=== PATIENT | male | born 1935 | race Caucasian/White ===

== ENCOUNTER 2017-04-13 06:58 | Observation (INO) | payer MEDICARE ==
[~2017-04-13] VITALS: Ht 180.3 cm; Wt 104.0 kg
[~2017-04-13 06:58] MED LIST: ALBUTEROL SUL0.083 % IN; ANORO ELLIPTA 61 AER IN; ASPIRIN81 MG PO; CLARITIN10 M1 PO; COQ10100 MG PO; DOXYCYCL HYC100 MG PO; FINASTERIDE5 MG PO; FISH OIL1000 MG PO; FLOMAX0.4 M1 PO; FLUTICASONE50 MCG; IBUPROFEN200 MG PO; IMITREX; MAXALT-MLT10 MG; MAXALT10 MG PO; METOPROL TAR25 MG PO; NEXIUM20 M1; PERCOCET 5/325M1 TAB PO; PREVACID30 M1 PO; PROAIR RES108 MCG/AC IN; SALINE NASAL0.65 %; SOD CHLORIDE1 G2 PO; STOOL SOFTE1 PO; SUDAFED30 MG PO; TRILEPTAL300 M1 PO; TRILEPTAL300 MG
--- NOTE | 2017-04-13 07:07 | NUR ---
PATIENT TO ROOM VIA EMS AND PHYSICIAN AT BEDSIDE
[2017-04-13] MEDS ORDERED: GABAPENTIN300 M2 PO (07:18)
[2017-04-13] MEDS ORDERED: LASIX20 MG PO (07:19)
[2017-04-13] MEDS ORDERED: XARELTO20 MG PO (07:19)
[2017-04-13] MEDS ORDERED: VALIUM5 MG PO (07:20)
[2017-04-13 07:21] LABS: HEMATOCRIT 37.2 % (39.0-50.0); HEMOGLOBIN 12.4 g/dl (14.0-18.0); MEAN CELL VOLUME 94.4 fL CALC (80.0-100.0); MEAN CORPUSCULAR HGB 31.5 pG CALC (26.0-32.0); MEAN CORPUSCULAR HGB CONC 33.3 g/L CALC (32.0-36.0); NEUT# 3.68 thou/uL (1.82-7.42); RED BLOOD COUNT 3.94 mill/uL (4.70-6.10); RED CELL DISTRI WIDTH 14.6 % (11.5-15.5)
[2017-04-13 07:40] LABS: ALBUMIN 3.7 g/dL (3.2-5.0); ALKALINE PHOSPHATASE 78 u/l (38-126); ANION GAP 13 (6-22 (CALC)); BILIRUBIN, TOTAL 0.5 mg/dL (0.0-1.4); BUN 34 mg/dL (8-23); BUN/CREATININE RATIO 44 (12-20 (CALC)); CALCIUM 8.6 mg/dL (8.4-10.2); CARBON DIOXIDE 24 mmol/l (22-30); CHLORIDE 108 mmol/l (95-108); CREATININE 0.8 mg/dL (0.7-1.3); ETHYL ALCOHOL 0 mg/dl (0-30); GFR > 60 ML/MIN (>=60 (CALC)); GFR FOR AFR.AMER. > 60 ML/MIN (>=60 (CALC)); GLUCOSE 119 mg/dL (82-115); POTASSIUM 3.9 mmol/l (3.5-5.1); SGOT/AST 35 u/l (19-48); SGPT/ALT 38 u/l (11-66); SODIUM 140 mmol/l (137-146); TOTAL PROTEIN 6.8 g/dL (6.3-8.2)
[2017-04-13 07:41] LABS: IMMATURE GRANULOCYTES 6.3 % (0.0-1.0)
[2017-04-13 07:52] LABS: MYOGLOBIN 47 ng/mL (0 - 121)
--- NOTE | 2017-04-13 08:24 | NUR ---
PT TO RADIOLOGY FOR 2ND ATTEMPT OF CT BRAIN AND CSPINE
--- NOTE | 2017-04-13 09:00 | NUR ---
PT RETURNS FROM CT IN STABLE CONDITION VIA STRETCHER. HEAD ABRASION CLEANSED AND DRESSING APPLIED. AT BEDSIDE.
[2017-04-13 09:51] LABS: URINE BILIRUBIN - DIPSTICK NEGATIVE (NEGATIVE); URINE BLOOD DIPSTICK NEGATIVE (NEGATIVE); URINE CLARITY CLEAR; URINE COLOR YELLOW; URINE GLUCOSE - DIPSTICK NEGATIVE (NEGATIVE); URINE KETONE NEGATIVE (NEGATIVE); URINE LEUK ESTERASE NEGATIVE (NEGATIVE); URINE NITRITE - DIPSTICK NEGATIVE (Negative); URINE PROTEIN - DIPSTICK NEGATIVE (NEG-TRACE); URINE UROBILINOGEN - DIPSTICK 0.2 E.U./dL (0.2)
[2017-04-13 09:57] LABS: BARBITURATES NEGATIVE (NEGATIVE); COCAINE NEGATIVE (NEGATIVE); METHADONE NEGATIVE (NEGATIVE); OXCYCODONE NEGATIVE (NEGATIVE); TETRAHYDROCANNABIONOL NEGATIVE (NEGATIVE); TRICYLIC ANTIDEPRESSANTS POSITIVE (NEGATIVE)
--- NOTE | 2017-04-13 09:58 | NUR ---
REPORT PROVIDED TO FLORESITA HARRIS
--- NOTE | 2017-04-13 10:15 | NUR ---
PT TO MEDSURG IN STABLE CONDITON VIA STRETCHER.
--- NOTE | 2017-04-13 11:30 | NUR ---
PT.ARRIVED TO FLOOR IN GOOD CONDITION VIA STRETCHER ACCOMPANIED BY FLORESITA HUTCHINS OF ED; PT.ORIENTED TO ROOM,CALL LIGHT, SAFETY MEASURES AND V/S,WEIGHT ASSESSED. WILL F/UP WITH FULL ASSESSMENT AND DISCUSS POC W/PT.; AT BS AND CALL LIGHT WIN REACH
[2017-04-13 11:33] VITALS: BP 105/62
[2017-04-13 15:09] VITALS: BP 110/63
[2017-04-13 19:08] VITALS: BP 109/65
--- NOTE | 2017-04-13 21:00 | NUR ---
PT IN BED A/O X3, RESPIRATIONS EVEN AND UNLABORED. DENIES HEADACHE. DRESSING IN PLACE TO HEAD, ADMITS TO FALLING AT HOME AND HITTING HIS HEAD, BUT STATES HE HAS NO RECOLECTION OF IT HAPPENING UNTIL EMS WAS BRINGING HIM TO HOSPITAL. AT BED SIDE. ENCOURAGED TO USE CALL LIGHT FOR ASSISTANCE.
--- NOTE | 2017-04-14 | NUR ---
CODE EXIT CLEARED PT TRANSFERRED BACK TO [facility] ROOM 268, ALL BELONGINS WITH HIM, AT BED SIDE.
[2017-04-14 03:16] VITALS: BP 115/63
[2017-04-14 07:22] VITALS: BP 129/78
--- NOTE | 2017-04-14 07:30 | NUR ---
PT.PROPPED UP IN BED W/TV ON AND AT BS. STATES HE WANTS A WALKER TO WALK THE [place] AND SEE HOW HE FEELS; WALKER PROVIDED, AND PT.IS WALKING [place] W/MARY NEWSOME AT SIDE.
--- NOTE | 2017-04-14 11:00 | NUR ---
pt has been relaxing in bed with no distress noted. iv site is free from redness or edema. family in the room. continue to observe and monitor.,
--- NOTE | 2017-04-14 14:30 | NUR ---
IV SITE DISCONTINEUD CATHETER INTACT., NO REDNESS OR EDEMA. CONTINUE TO OBSERVE AND MONITOR.
--- NOTE | 2017-04-14 15:05 | NUR ---
DISCHARGE INSTRUCTIOMS GIVEN WITH PERSONAL MEDICATIONS FAMILY IN THE ROOM. VERBALIZED UNDERSTANDING. BACK OF HIS HEAD IS CURRENTLY DRY NO OOZING OF BLOOD FROM THE WOUND.
--- NOTE | 2017-04-14 15:07 | NUR ---
Discharge instructions given. Patient verbalizes understanding of same. Discharged in stable condition via Wheelchair to Home with family. All belongings sent with pt.
== END 2017-04-14 14:55 | disposition home or self-care (01) ==
LOC: ED 06:58 → ED-I 09:40 → ED 09:59 → MS2 10:00
PROVIDERS: Emergency Medicine; ADMIT Internal Medicine; ATTEND Internal Medicine
DX: R55 Syncope and collapse (principal); J44.9 Chronic obstructive pulmonary disease, unspecified; S00.01XA Abrasion of scalp, initial encounter; G47.33 Obstructive sleep apnea (adult) (pediatric); G50.0 Trigeminal neuralgia; K21.9 Gastro-esophageal reflux disease without esophagitis; N40.0 Benign prostatic hyperplasia without lower urinary tract symptoms; E87.1 Hypo-osmolality and hyponatremia; W18.30XA Fall on same level, unspecified, initial encounter; Y92.002 Bathroom of unspecified non-institutional (private) residence as the place of occurrence of the external cause; Z90.49 Acquired absence of other specified parts of digestive tract; Z79.01 Long term (current) use of anticoagulants; Z87.891 Personal history of nicotine dependence; Z95.0 Presence of cardiac pacemaker; Z95.2 Presence of prosthetic heart valve; Z86.74 Personal history of sudden cardiac arrest

== ENCOUNTER 2018-07-22 17:12 | Emergency (ER) | payer MEDICARE, BC ==
[~2018-07-22] VITALS: Ht 180.3 cm; Wt 105.0 kg
[~2018-07-22 17:12] MED LIST changes: +GABAPENTIN300 M2 PO; +LASIX20 MG PO; +VALIUM5 MG PO; +XARELTO20 MG PO
[2018-07-22] MEDS ORDERED: VALIUM5 MG PO (17:32)
[2018-07-22] MEDS ORDERED: ULTRAM50 M1 PO (18:42)
[2018-07-22 19:11] VITALS: BP 129/59
== END 2018-07-22 19:23 | disposition home or self-care (01) ==
LOC: ED 17:12
PROC: 0HQ0XZZ Repair Scalp Skin, External Approach (ICD-10-PCS; principal; 2018-07-22)
DX: S01.01XA Laceration without foreign body of scalp, initial encounter (principal); S30.0XXA Contusion of lower back and pelvis, initial encounter; H91.90 Unspecified hearing loss, unspecified ear; G50.0 Trigeminal neuralgia; W01.198A Fall on same level from slipping, tripping and stumbling with subsequent striking against other object, initial encounter; Y93.89 Activity, other specified; Y92.009 Unspecified place in unspecified non-institutional (private) residence as the place of occurrence of the external cause; Z95.2 Presence of prosthetic heart valve; Z86.74 Personal history of sudden cardiac arrest

== ENCOUNTER 2018-08-22 16:56 | Observation (INO) | payer MEDICARE, OTHER ==
[~2018-08-22] VITALS: Ht 180.3 cm; Wt 102.4 kg
[~2018-08-22 16:56] MED LIST changes: +ULTRAM50 M1 PO
--- NOTE | 2018-08-22 16:56 | NUR ---
PT ARRIVED VIA EMS ALERT AND RESPONSIVE. NO ACITVE BLEEDING THROUGH SCALP BANDAGE. TRANFERED TO STRETCHER AND IMMEDIATELY TO CT SCAN
[2018-08-22 17:24] LABS: HEMOGLOBIN 11.9 g/dl (14.0-18.0); IMMATURE GRANULOCYTES 4.6 % (0.0-5.0); MEAN CELL VOLUME 96.4 fL CALC (80.0-100.0); MEAN CORPUSCULAR HGB CONC 32.2 g/L CALC (32.0-36.0); NEUT# 3.16 thou/uL (1.82-7.42); RED BLOOD COUNT 3.84 mill/uL (4.70-6.10); RED CELL DISTRI WIDTH 15.3 % (11.5-15.5)
--- NOTE | 2018-08-22 17:41 | NUR ---
PT JOKING AND TEASING ALL OF STAFF AND DOCTORS, STATES HE HAS BEEN SEEING A RETIONOLOGIST FOR THE LEFT EYE, BLURRINESS AND PUPIL NOT RESPONDING WELL RIGHT, SINCE FALLING LAST MONTH.
--- NOTE | 2018-08-22 17:42 | NUR ---
FAMILY AT BEDSIDE, SUTURING THE TWO LACERATION TO LEFT SIDE OF EYEBROW. 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
[2018-08-22] MEDS ORDERED: FAMOTIDINE20 M1 PO (17:44)
[2018-08-22] MEDS ORDERED: FLONASE SE27.5 MCG/S NAB (17:45)
[2018-08-22] MEDS ORDERED: SOD CHLORIDE1 G1 PO ×4 (17:48→18:18)
[2018-08-22] MEDS ORDERED: STIOLTO RESPIMA1 AER IN (17:49)
--- NOTE | 2018-08-22 17:55 | NUR ---
STATES HE WAS OUT IN [place] WORKING ON A BIKE WHEN HE FELL.
--- NOTE | 2018-08-22 17:56 | NUR ---
LEFT EYE HAS SOME NOTICEABLE BRUISING AT THIS TIME. PT REMAINS ALERT/ORIENTED AND TALKING AND LAUGHING WITH FAMILY AND STAFF.
--- NOTE | 2018-08-22 17:59 | NUR ---
FARZAD CANAS IS TRYING TO RECONCILE MEDS, PULLED OUT A TACKLE BOX WITH ALL THE PILLS HE IS ON IN SEPARATE COMPARTMENTS. TRYING TO FIND OUT WHEN HE TAKES HIS MEDICATIONS, SHE STATES SHE DOESNT HAVE ANY BOTTLES, WHEN THE RX COME IN MAIL SHE JUST DUMPS THEM IN FOR THE WEEK IN THE TACKLE BOX AND THROWS AWAY THE PLASTIC SHEETS.
[2018-08-22 18:06] LABS: ANION GAP 14 (6-22 (CALC)); BUN 47 mg/dL (8-23); BUN/CREATININE RATIO 48 (12-20 (CALC)); CARBON DIOXIDE 24 mmol/l (22-30); CHLORIDE 110 mmol/l (95-108); GFR > 60 ML/MIN (>=60 (CALC)); GFR FOR AFR.AMER. > 60 ML/MIN (>=60 (CALC)); POTASSIUM 4.2 mmol/l (3.5-5.1); SODIUM 144 mmol/l (137-146)
--- NOTE | 2018-08-22 18:40 | NUR ---
NOTICED PTS HEART RATE WAS DROPPING INTO THE 40'S AND THEN BOUNCING BACK UP INTO THE 70'S WITH MULTIPLE PVC'S. INTEROGATED PTS [employer] THAT IS ON PTS RIGHT UPPER CHEST. PT STATES WAS PLACED IN 2013.
--- NOTE | 2018-08-22 19:08 | NUR ---
FAX SENT BACK TO US FROM [facility] DR. LINDA LOOKING OVER IT. PT RESTING ON STRETCHER. ADVISED OF REASON FOR ADMISSION. LEFT TO GO HOME. PT REMAINS ALERT/ORIENTED, CALL LIGHT WITHIN REACH, SIDE RAILS UP.
[2018-08-22 20:00] VITALS: BP 142/66
--- NOTE | 2018-08-22 20:00 | NUR ---
PT ARRIVED TO FLOOR VIA STRETCHER ACCOMPANIED BY HEALTHCARE ACCOUNT MANAGER. PT ASSISTED TO RESTROOM AND TO THE BED. V/S ASSESSED AND PT ORIENTED TO ROOM,CALL SYSTEM, BED, LIGHTS AND TV. PT REPORTS SOME PAIN TO HEAD. SKIN TEAR TO TOP OF HEAD, BRUISING UPPER LEFT EYE AND BROW AREA W/SKIN TEARS X2 OVER EYE AND SUTURES IN PLACE. PT IS REQUESTING COFFEE/PROVIDED. ORDERS REVIEWED AND POC DISCUSSED W/PT AT THIS TIME. WILL FOLLOW-UP W/FULL ASSESSMENT.
--- NOTE | 2018-08-22 20:06 | NUR ---
PT REPORT GIVEN AND PT TAKEN TO MED SURG WITH TELE MONITER PER STRETCHER.
[2018-08-22 20:39] LABS: URINE BILIRUBIN - DIPSTICK NEGATIVE (NEGATIVE); URINE BLOOD DIPSTICK NEGATIVE (NEGATIVE); URINE COLOR YELLOW; URINE GLUCOSE - DIPSTICK NEGATIVE (NEGATIVE); URINE KETONE NEGATIVE (NEGATIVE); URINE LEUK ESTERASE NEGATIVE (Negative); URINE NITRITE - DIPSTICK NEGATIVE (Negative); URINE PROTEIN - DIPSTICK NEGATIVE (NEG-TRACE); URINE UROBILINOGEN - DIPSTICK 0.2 E.U./dL (0.2)
[2018-08-22 20:43] LABS: URINE CLARITY CLEAR
--- NOTE | 2018-08-22 21:37 | NUR ---
PT ASSESSED, LUNG SOUNDS ARE CLEAR, ABD DIST/SOFT W/ACTIVE BOWEL SOUNDS, PT REPORTS PAIN IN HEAD, SUTURES AND BRUISING OVER LEFT EYE AND SKIN TEAR TO TOP OF HEAD, OTHERWISE SKIN APPEARS INTACT. NO NOTED EDEMA OTHER THAN OVER THE LEFT EYE, PT IS LOCX4 AT THIS TIME, BUT DOES NOT REMEMBER FALLING OR WHY HE FELL. STRONG/EQUAL CRISIS NURSE, SPEECH IS CLEAR AND APPROPRIATE, PUPILS ARE REACTIVE BUT UNEQUAL, PULSES ARE STRONG BILAT RADIAL AND PEDAL, RESPIRATIONS ARE NON-LABORED, DENIES COUGH/N/V, REPORTS FREQUENCY W/URINATION/DENIES BURNING OR DIFFICULTY, REPORTS BM THIS DAY NORMAL.
[2018-08-22 23:05] VITALS: BP 114/53
[2018-08-22 23:10] VITALS: BP 122/60
[2018-08-22 23:15] VITALS: BP 119/66
[2018-08-23] VITALS (7 sets, daily range): BP systolic 97–115; BP diastolic 40–64
--- NOTE | 2018-08-23 05:20 | NUR ---
ATTEMPTED TO TAKE ORTHOSTATIC BP'S SUPPINE 104/62 HR66 02SAT 91%, PT REFUSED REMAINDER OF BP'S DUE TO DISCOMFORT. STANDING SCALE WEIGHT OBTAINED AT THIS TIME.
--- NOTE | 2018-08-23 06:25 | NUR ---
PT IN RECLINER FOR COMFORT, PHYSICIAN CONTACTED FOR NEW ORDERS, WILL MEDICATE ORDERS ARE AVAILABLE. PT PROVIDED ICE PACK
--- NOTE | 2018-08-23 08:10 | NUR ---
PT IN SEMI FOWLERS IN BED. PT IS UPSET. STATED THAT HE IS WAITING FOR HIS TO BRING HIS MEDICATION TRILEPTAL FOR HIS PAIN IN LEFT EYE. PT REFUSED HIS AM MEDICATIONS AT THIS TIME. PT ONLY TOOK TYLENOL FOR PAIN IN LEFT EYE SEE EMAR. SAFETY PRECAUTIONS REINFORCED AND CALL LIGHT IN REACH.
--- NOTE | 2018-08-23 08:35 | NUR ---
IN ROOM. ASKED IF SHE HAD THE TRILEPTAL. SHE STATED YES BUT PT AND STATED THEY WILL NOT GIVE IT TO ME TO SEND IT TO PHARMACY SO THEY CAN LABEL IT. PT REFUSED AGAIN HIS AM MEDICATIONS. HAS HIS MEDICATIONS IN A CASE AND STATED THAT SHE WILL GAVE THEM TO HIM. TOLD THEN PER OUR POLICY THEY ARE NOT ALLOW TO KEEP HIS MEDICATIONS IN THE ROOM. THEY STATED HE WILL TAKE HIS OWN MEDICATIONS. CALL LIGHT IN REACH.
--- NOTE | 2018-08-23 09:22 | NUR ---
ASESSMENT DONE . TELE IN PLACE. #22 RAC THAT APPEARS HEALTHY. PT IS A&O X3. PT STATED THAT HE ONLY TOOK HIS TRILEPTAL AND WANTS HIS AM MEDICATION. NOTIFIED DAVIN SOUSA RE: PT TAKING HIS OWN MEDICATION. DAVIN, STATED TO HOLD HIS AM MEDICATION ON TILL COMES BACK. DAVIN EXPLAIN THAT TO PT ALSO. CALL LIGHT IN REACH.
--- NOTE | 2018-08-23 10:28 | NUR ---
CAME BACK. ASKED WHAT MEDICATIONS DID PT TAKE . SHE STATED TRILEPTAL ADN GABAPENTIN. TOLD THEM I HAD TO NOTIFIED PAVING AND SURFACING LABOURER . TOLD THAT IF SHE CAN BRING THE TRILEPTAL AND LET PHARMACY LABEL IT THAT WE CAN KEEP IT IN THE ROOM BUT HE WOULD ONLY TAKE THAT MEDICATION ON TILL WE SCAN IT . PT AND STATED YES. TOLD PAVING AND SURFACING LABOURER AND SHE STATED THAT WAS FINE.
--- NOTE | 2018-08-23 10:55 | NUR ---
DR. TRAN AND DAVIN SOUSA [facility]IDE [facility].
--- NOTE | 2018-08-23 11:24 | NUR ---
PT HOLDING A COOL WASH CLOTH TO LEFT EYE. MEDICATED PT WITH MORPHINE FOR PAIN SEE EMAR. PT DENIES ANY OTHER NEEDS AT THIS TIME. CALL LIGHT IN REACH.
--- NOTE | 2018-08-23 12:30 | NUR ---
NOTIFIED DAVIN SOUSA RE: ORTHO BP LAYING P-77 BP 103/40 AND SITTING P-61 103/48. ALSO THAT PT REFUSED TO STAND FOR BP. NO NEW ORDERS RECEIVED AT THIS TIME.
--- NOTE | 2018-08-23 15:53 | NUR ---
PT IS SLEEPING IN BED WITH NO S/S OF DISTRESS NOTED. CALL LIGHT IN REACH.
--- NOTE | 2018-08-23 19:15 | NUR ---
PT IS SLEEPING IN HIGH FOWLERS POSITION W/LIGHTS DOWN LOW AND TV ON. NO S/O DISTRESS AT THIS TIME. CALL LIGHT AT SIDE
--- NOTE | 2018-08-23 22:30 | NUR ---
PT MEDICATED ORDERS PROVIDE. PT LUNG SOUNDS ARE CLEAR, HR IRREGULAR, ABD SOFT NON-TENDER W/ACTIVE BOWEL SOUNDS, SKIN INTACT OTHER THAN SKIN TEAR TO TOP OF HEAD AND SUTURED TEARS OVER LEFT EYE ON ADMISSION. PT LOCX4, POC AND MEDICATIION SCHEDULE DISCUSSED AT THIS TIME. PT PROVIDED COFFEE/REQUEST AND ASSISTED IN INTERNET ACCESS. REPORTS PAIN IS 1-2/10 ON PAIN SCALE. PT DENIES ANY OTHER NEEDS AT THIS TIME
[2018-08-24] VITALS (10 sets, daily range): BP systolic 92–129; BP diastolic 48–69
--- NOTE | 2018-08-24 00:13 | NUR ---
PT REFUSED ORTHOSTATIC BP'S AT THIS TIME.
--- NOTE | 2018-08-24 03:00 | NUR ---
PT IS SLEEPING AT THIS TIME, NO S/O DISTRESS. WILL CONTINUE TO MONITOR.
--- NOTE | 2018-08-24 07:10 | NUR ---
REPORT RECEIVED FROM FLORESITA HARRIS; PT APPEARS TO BE SLEEPING IN BED, RESP EVEN AND UNLABRORED, CALL TUBBS IN REACH.
--- NOTE | 2018-08-24 08:31 | NUR ---
PT SITTING UP IN BED EATING BREAKFAST; A/OX3; 02@ 2LNC; SCAB AREA ON HEAD NOTED; LEFT EYE BRUISED AND SWOLLEN; SUTURES ABOVE LEFT EYE INTACT, NO DRAINAGE NOTED; TELE IN PLACE PACED 69 ON MONITOR; PULSES STRONG; ABD SOFT AND DISTENDED; IV FLUSHED FREELEY; PAIN SCALE 4/10 REFUSED PAIN MEDS; SAFTEY PRECAUTION REINFORCE; CALL TUBBS AND URINAL IN REACH. AM MED ADMINISTERED;
--- NOTE | 2018-08-24 11:21 | NUR ---
PT SITTING UP IN RECLINER VISITING WITH FAMILY MEMBERS; NO S/S OF DISTRESS NOTED; RESP EVEN AND UNLABORED; [address]; CALL TUBBS IN REACH.
--- NOTE | 2018-08-24 12:01 | NUR ---
ORTHO VITALS OBTAINED LAY HR68, BP 106/48; SIT HR 73, BP 118/48, STAND HR 75, BP 105/52; SAFETY PRECAUTION REINFORCED; PT NOW EATING LUNCH. CALL TUBBS IN REACH.
--- NOTE | 2018-08-24 12:15 | NUR ---
DR GABRIEL AT BEDSIDE TO DISSCUSS POC
--- NOTE | 2018-08-24 15:11 | NUR ---
D/C INSTURCTIONS GIVEN TO PT ALONG WITH HIS HOME MED (TRILEPTAL); IV REMOVED WITH CATH TIP INTACT; PT TOLERATED WELL; ASSIST PT WITH DRESSING; INSTRUCT PT TO CALL WHEN HIS RIDE GETS HERE; VERBALIZE UNDERSTANDING.
--- NOTE | 2018-08-24 15:22 | NUR ---
Discharge instructions given. Patient verbalizes understanding of same. Discharged in stable condition via Wheelchair to Home with family. All belongings sent with pt.
== END 2018-08-24 15:25 | disposition home or self-care (01) ==
LOC: ED 16:56 → ED-I 18:35 → ED 18:46 → MS2 18:47
PROVIDERS: Family Medicine; Internal Medicine; ADMIT Internal Medicine; ATTEND Internal Medicine
PROC: 0HQ1XZZ Repair Face Skin, External Approach (ICD-10-PCS; principal; 2018-08-22)
PROC: 0HQ0XZZ Repair Scalp Skin, External Approach (ICD-10-PCS; 2018-08-22)
DX: R55 Syncope and collapse (principal); S06.9X1A Unspecified intracranial injury with loss of consciousness of 30 minutes or less, initial encounter; S01.01XA Laceration without foreign body of scalp, initial encounter; S01.112A Laceration without foreign body of left eyelid and periocular area, initial encounter; J44.9 Chronic obstructive pulmonary disease, unspecified; G47.33 Obstructive sleep apnea (adult) (pediatric); N40.0 Benign prostatic hyperplasia without lower urinary tract symptoms; K21.9 Gastro-esophageal reflux disease without esophagitis; G50.0 Trigeminal neuralgia; H91.90 Unspecified hearing loss, unspecified ear; I48.0 Paroxysmal atrial fibrillation; I27.20 Pulmonary hypertension, unspecified; W18.30XA Fall on same level, unspecified, initial encounter; Y92.009 Unspecified place in unspecified non-institutional (private) residence as the place of occurrence of the external cause; Z95.0 Presence of cardiac pacemaker; Z87.891 Personal history of nicotine dependence; Z79.01 Long term (current) use of anticoagulants; Z86.74 Personal history of sudden cardiac arrest; Z95.3 Presence of xenogenic heart valve

== ENCOUNTER 2018-10-09 12:25 | Emergency (ER) | payer MEDICARE, OTHER ==
[~2018-10-09] VITALS: Ht 180.3 cm; Wt 101.8 kg
[~2018-10-09 12:25] MED LIST changes: +FAMOTIDINE20 M1 PO; +FLONASE SE27.5 MCG/S NAB; +SOD CHLORIDE1 G1 PO; +STIOLTO RESPIMA1 AER IN
[2018-10-09] MEDS ORDERED: MULTI VIT PO (13:17)
[2018-10-09] MEDS ORDERED: LUTEIN40 MG PO (13:17)
[2018-10-09] MEDS ORDERED: B121000 MCG PO (13:18)
[2018-10-09] MEDS ORDERED: MAGNESIUM OXID400 M3 PO (13:18)
[2018-10-09] MEDS ORDERED: PREDNISOLO15 MG/5 M1 OS (13:20)
[2018-10-09] MEDS ORDERED: GENTAMICIN0.3 % OS (13:21)
[2018-10-09 13:45] LABS: HEMATOCRIT 39.2 % (39.0-50.0); HEMOGLOBIN 12.7 g/dl (14.0-18.0); IMMATURE GRANULOCYTES 2.3 % (0.0-5.0); MEAN CELL VOLUME 94.9 fL CALC (80.0-100.0); MEAN CORPUSCULAR HGB 30.8 pG CALC (26.0-32.0); MEAN CORPUSCULAR HGB CONC 32.4 g/L CALC (32.0-36.0); NEUT# 3.75 thou/uL (1.82-7.42); RED BLOOD COUNT 4.13 mill/uL (4.70-6.10); RED CELL DISTRI WIDTH 14.7 % (11.5-15.5)
[2018-10-09 13:53] LABS: ALBUMIN 4.4 g/dL (3.2-5.0); ALKALINE PHOSPHATASE 102 u/l (38-126); ANION GAP 16 (6-22 (CALC)); BILIRUBIN, TOTAL 0.6 mg/dL (0.0-1.4); BUN 18 mg/dL (8-23); BUN/CREATININE RATIO 28 (12-20 (CALC)); CARBON DIOXIDE 25 mmol/l (22-30); CHLORIDE 100 mmol/l (95-108); CREATININE 0.7 mg/dL (0.7-1.3); GFR > 60 ML/MIN (>=60 (CALC)); GFR FOR AFR.AMER. > 60 ML/MIN (>=60 (CALC)); POTASSIUM 4.8 mmol/l (3.5-5.1); SODIUM 136 mmol/l (137-146); TOTAL PROTEIN 7.8 g/dL (6.3-8.2)
[2018-10-09 14:02] LABS: SGOT/AST 70 u/l (19-48)
[2018-10-09 14:05] LABS: MYOGLOBIN 30 ng/mL (0 - 121)
[2018-10-09 17:22] VITALS: BP 149/70
== END 2018-10-09 17:22 | disposition short-term general hospital (02) ==
LOC: ED 12:25
PROVIDERS: Emergency Medicine
DX: S06.5X9A Traumatic subdural hemorrhage with loss of consciousness of unspecified duration, initial encounter (principal); J44.9 Chronic obstructive pulmonary disease, unspecified; I27.20 Pulmonary hypertension, unspecified; I48.0 Paroxysmal atrial fibrillation; W19.XXXA Unspecified fall, initial encounter; Z95.0 Presence of cardiac pacemaker

== ENCOUNTER 2020-04-07 22:26 | Emergency (ER) | payer MEDICARE, OTHER ==
[~2020-04-07] VITALS: Ht 180.3 cm; Wt 107.0 kg
[~2020-04-07 22:26] MED LIST changes: +B121000 MCG PO; +GENTAMICIN0.3 % OS; +LUTEIN40 MG PO; +MAGNESIUM OXID400 M3 PO; +MULTI VIT PO; +PREDNISOLO15 MG/5 M1 OS
[2020-04-08 00:58] VITALS: BP 141/75
== END 2020-04-08 00:58 | disposition home or self-care (01) ==
LOC: ED 22:26
PROC: 0HQ0XZZ Repair Scalp Skin, External Approach (ICD-10-PCS; principal; 2020-04-07)
DX: S01.01XA Laceration without foreign body of scalp, initial encounter (principal); I48.0 Paroxysmal atrial fibrillation; G50.0 Trigeminal neuralgia; H91.90 Unspecified hearing loss, unspecified ear; J44.9 Chronic obstructive pulmonary disease, unspecified; I27.20 Pulmonary hypertension, unspecified; H54.62 Unqualified visual loss, left eye, normal vision right eye; W01.198A Fall on same level from slipping, tripping and stumbling with subsequent striking against other object, initial encounter; Z91.81 History of falling; Y92.000 Kitchen of unspecified non-institutional (private) residence as the place of occurrence of the external cause; Z99.81 Dependence on supplemental oxygen; Z86.79 Personal history of other diseases of the circulatory system; Z86.74 Personal history of sudden cardiac arrest; Z95.2 Presence of prosthetic heart valve; Z95.0 Presence of cardiac pacemaker

== ENCOUNTER 2020-05-23 00:58 | Emergency (ER) | payer MEDICARE, OTHER ==
[~2020-05-23] VITALS: Ht 180.3 cm; Wt 106.8 kg
[2020-05-23 02:22] LABS: HEMOGLOBIN 11.6 g/dl (14.0-18.0); MEAN CELL VOLUME 101.1 fL CALC (80.0-100.0); MEAN CORPUSCULAR HGB 30.9 pG CALC (26.0-32.0); MEAN CORPUSCULAR HGB CONC 30.5 g/dL CAL (32.0-36.0); NEUT# 4.26 thou/uL (1.82-7.42); RED BLOOD COUNT 3.76 mill/uL (4.70-6.10); RED CELL DISTRI WIDTH 16.1 % (11.5-15.5)
[2020-05-23 02:25] LABS: ALBUMIN 3.8 g/dL (3.2-5.0); ALKALINE PHOSPHATASE 105 u/l (38-126); ANION GAP 8 (6-22 (CALC)); BILIRUBIN, TOTAL 0.5 mg/dL (0.0-1.4); BUN 29 mg/dL (8-23); BUN/CREATININE RATIO 28 (12-20 (CALC)); CARBON DIOXIDE 30 mmol/l (22-30); CHLORIDE 107 mmol/l (95-108); CPK 84 u/l (52-200); GFR > 60 ML/MIN (>=60 (CALC)); GFR FOR AFR.AMER. > 60 ML/MIN (>=60 (CALC)); LIPASE 133 u/l (23-300); MAGNESIUM 2.1 mg/dL (1.6-2.3); POTASSIUM 4.1 mmol/l (3.5-5.1); SGOT/AST 36 u/l (19-48); SODIUM 140 mmol/l (137-146); TOTAL PROTEIN 6.9 g/dL (6.3-8.2)
[2020-05-23 02:30] LABS: ACT PARTIAL THROMBO TIME 24.7 SECONDS (20.0-32.5); PROTHROMBIN TIME 9.9 SECONDS (9.0-12.5)
[2020-05-23 03:55] VITALS: BP 139/64
== END 2020-05-23 03:55 | disposition home or self-care (01) ==
LOC: ED 00:58
DX: S40.012A Contusion of left shoulder, initial encounter (principal); R42 Dizziness and giddiness; J44.9 Chronic obstructive pulmonary disease, unspecified; I27.20 Pulmonary hypertension, unspecified; I48.0 Paroxysmal atrial fibrillation; W18.30XA Fall on same level, unspecified, initial encounter; Y92.009 Unspecified place in unspecified non-institutional (private) residence as the place of occurrence of the external cause; Z99.81 Dependence on supplemental oxygen; Z95.2 Presence of prosthetic heart valve; Z91.81 History of falling; Z95.0 Presence of cardiac pacemaker; Z86.74 Personal history of sudden cardiac arrest

== ENCOUNTER 2020-05-29 13:32 | Inpatient (IN) | payer MEDICARE, OTHER ==
[~2020-05-29] VITALS: Ht 180.3 cm; Wt 113.9 kg
[2020-05-29] VITALS (9 sets, daily range): BP systolic 110–140; BP diastolic 51–80
--- NOTE | 2020-05-29 13:32 | NUR ---
PT TO ROOM 10 VIA EMS FOR CHF EXACERBATION. 3+ EDEMA TO BLE. LUNGS ARE CLEAR.
--- NOTE | 2020-05-29 14:00 | NUR ---
PT VOIDED 350CC OF CLEAR YELLOW URINE
[2020-05-29 14:17] LABS: IMMATURE GRANULOCYTES 5.6 % (0.0-5.0); MEAN CELL VOLUME 99.4 fL CALC (80.0-100.0); MEAN CORPUSCULAR HGB 30.4 pG CALC (26.0-32.0); MEAN CORPUSCULAR HGB CONC 30.6 g/dL CAL (32.0-36.0); NEUT# 4.08 thou/uL (1.82-7.42); RED BLOOD COUNT 3.62 mill/uL (4.70-6.10); RED CELL DISTRI WIDTH 15.7 % (11.5-15.5)
--- NOTE | 2020-05-29 14:30 | NUR ---
MEDICATED PT PER EMAR AND ORDERS. OBTAINED SWABS PER ORDERS.
[2020-05-29 14:32] LABS: ALBUMIN 4.1 g/dL (3.2-5.0); ALKALINE PHOSPHATASE 103 u/l (38-126); ANION GAP 11 (6-22 (CALC)); BILIRUBIN, TOTAL 0.6 mg/dL (0.0-1.4); BUN 31 mg/dL (8-23); BUN/CREATININE RATIO 30 (12-20 (CALC)); CARBON DIOXIDE 33 mmol/l (22-30); CHLORIDE 103 mmol/l (95-108); GFR > 60 ML/MIN (>=60 (CALC)); GFR FOR AFR.AMER. > 60 ML/MIN (>=60 (CALC)); MAGNESIUM 2.1 mg/dL (1.6-2.3); POTASSIUM 4.2 mmol/l (3.5-5.1); SGOT/AST 46 u/l (19-48); SODIUM 142 mmol/l (137-146); TOTAL PROTEIN 7.5 g/dL (6.3-8.2)
--- NOTE | 2020-05-29 14:41 | NUR ---
CLOSED WOUND WITH 2 SERA
--- NOTE | 2020-05-29 15:00 | NUR ---
PT VOIDED 450 CC OF CLEAR YELLOW URINE
[2020-05-29 15:27] LABS: URINE BILIRUBIN - DIPSTICK NEGATIVE (NEGATIVE); URINE BLOOD DIPSTICK NEGATIVE (NEGATIVE); URINE COLOR YELLOW; URINE GLUCOSE - DIPSTICK NEGATIVE (NEGATIVE); URINE KETONE NEGATIVE (NEGATIVE); URINE LEUK ESTERASE NEGATIVE (NEGATIVE); URINE NITRITE - DIPSTICK NEGATIVE (Negative); URINE PH 6.5 (4.5-8.0); URINE PROTEIN - DIPSTICK NEGATIVE (NEG-TRACE); URINE SPECIFIC GRAVITY 1.015; URINE UROBILINOGEN - DIPSTICK 0.2 E.U./dL (0.2)
--- NOTE | 2020-05-29 15:45 | NUR ---
PT RESTING ON STRETCHER. VSS ON MONITOR. NO DISTRESS NOTED. CALL LIGHT IN REACH. WILL CONTINUE TO MONITOR.
[2020-05-29] MEDS ORDERED: MIDODRINE5 MG PO (16:03)
[2020-05-29] MEDS ORDERED: TRELEGY ELLIPTA1 AER IN (16:04)
[2020-05-29] MEDS ORDERED: DILT-XR120 MG PO (16:06)
[2020-05-29] MEDS ORDERED: CYMBALTA60 MG PO (16:07)
[2020-05-29] MEDS ORDERED: FUROSEMIDE20 MG PO (16:07)
[2020-05-29] MEDS ORDERED: TRILEPTAL300 MG PO ×2 (16:08→16:11)
[2020-05-29] MEDS ORDERED: DORZOLAMIDE HCL2 % OS (16:10)
--- NOTE | 2020-05-29 16:26 | NUR ---
PT VOIDED 550CC OF CLEAR YELLOW URINE.
--- NOTE | 2020-05-29 16:26 | NUR ---
REPORT CALLED TO ANA ON MED SURG.
--- NOTE | 2020-05-29 16:37 | NUR ---
masood pratt at bedside with patient
--- NOTE | 2020-05-29 17:00 | NUR ---
pt to room 281 via stretcher. pt tolerated transfer well.
--- NOTE | 2020-05-29 17:03 | NUR ---
RECIEVED REPORT FROM Jennifer YING RN. PT ARRIVED TO [facility] ROOM 281 VIA STRETCHER IN STABLE CONDITION ACCOMPAINED BY ER STAFF. PT IS A/O X3. INTRODUCED SELF TO PT AND DISCUSSED POC. VITALS OBTAINED BP 134/64, HR 95, O2 93% ON 4L NC. RESPIRATIONS ARE SHALLOW AND LABORED. LUNG SOUNDS ARE DIMINISHED. HEART RHYTHM APPEARS NORMAL WITH TELE PLACE. BOWEL SOUNDS ARE HYPOACTIVE, LAST REPORETD BM 05/29/2020. PT REPORTS TAKE MIRLAX DAILY TO ASSIST WITH BM . RADIAL AND PEDAL PULSES ARE STRONG WITH NORMAL CAPILLARY REFILL. #20G IN LAC EMS FLUSHED, SITE APPEARS HEALTHY AND PATENT. ABRASION TO RIGHT LEG, BAND AID APPLIED. SKIN IS WARM AND DRY. PT DENIES ANY PAIN OR DISCOMFORTS AT THIS TIME.PT REPORTS HAVING MULTIPLE FALLS AT HOME.WRITTER NOTIFIED OF ALLERGIES, ALLERGY BAND AND FALL RISK BAD APPLIED. ALL SAFETY AND ISOLATION PRECAUTIONS ARE IN PLACE PRECAUTIONS ARE IN PLACE WITH CALL LIGHT IN REACH. WILL CONTINUE TO MONITOR
--- NOTE | 2020-05-29 17:36 | NUR ---
RAPID RESPONSE CALLED, REPORTS OF PT HAVING VTACH. PT ON SIDE OF BED FINISHING USING URINAL. WRITTER AT BEDSIDE ASKING PT OF PAST MEDICAL HISTORY.PT REMAINS ASYMPTOMATIC. ORDERS TO TRANSFER PT TO ICU.
--- NOTE | 2020-05-29 17:50 | NUR ---
PT ARRIVED TO ICU ROOM 1 VIA BED WITH MEDSUR STAFF; ALERT AND ORIENTED. DENIES PAIN. RESPIRATIONS SLIGHTLY LABORED AND EVEN; OXYGEN 4L VIA NC WHICH HE WEARS AT HOME; PT REPORTS FEELING SOB, BUT SAYS HE ALWAYS FEELS SOB; SPO2 85-88%; OXYGEN TITRATED UP TO 5L. CONNECTED TO ATTACHMENTS; FREQUENT RUNS OF VTACH AND TRIGEMINY. 4+ BLE EDEMA. ORIENTED TO ROOM AND CALL LIGHT SYSTEM. PLACED ON [place]NE/CONTACT PRECAUTIONS PENDING COVID SWAB. POC REVIEWED. PT ENCOURAGED TO VERBALIZE CONCERNS. STATES UNDERSTANDING. SAFETY MEASURES IN PLACE. CALL LIGHT WITHIN REACH.
--- NOTE | 2020-05-29 17:50 | NUR ---
PT TRANSFER TO ICU BED 1. REPORT GIVEN TO Jose KU RN.
--- NOTE | 2020-05-29 18:34 | NUR ---
PT USED CALL LIGHT TO ASK FOR URINAL; UPON ENTERING ROOM PT IS LAYING HORIZONTAL IN BED WITH FOOD FROM [employer] COVERYING GOWN. PT IMPATIENT AND DEMANDING. ASSISTED TO SITTING POSITION ON EDGE OF BED AND PT REPORTS SHY BLADDRE AND UNABLE TO VOID WITH PEOPLE IN THE ROOM. SUGGESTED USING URINAL IN SEMI [place] POSITION FOR COMFORT AND SAFETY; REPOSITIONED INTO SEMI FOWLERS AND PULLED UP IN BED X 2 PERSON ASSIST. REPORTS HIS VISION LOSS IN THE LEFT EYE.
--- NOTE | 2020-05-29 18:38 | NUR ---
CURRENTLY IN TRIGEMINY WITH HR OF 92; PACER SPIKES NOTED WELL.
--- NOTE | 2020-05-29 19:15 | NUR ---
WHILE RECEIVING REPORT, PT CRAWLING OUT OF BED. ALERT. NOT LISTENING TO REDIRECTION. GIVEN 3 STAFF. TO PULL HIM UP IN BED TO REPOSITION HIME, HE BECAME COMFORTABLE AND COOPERATIVE. REMINDED TO CALL FOR ASSISTANCE AND NOT TRY TO GET OUT OF BED.
--- NOTE | 2020-05-29 19:30 | NUR ---
CARDIAC RHYTHM IS TRIGEMENY. DAYSHIFT STAFF REPORT THAT HAS BEEN HIS RHYTHN MOST OF THE SHIFT. PT DENIES CHEST PAIN OR DISCOMFORT
--- NOTE | 2020-05-29 19:50 | NUR ---
ASSISTED TO BSC- STATED HE NEEDED TO HAVE A BM AND WAS PARTLY OUT OF BED. STANDBY ASSIST TO BSC WHERE PT VOIDED 350 NL STRAW COLORED URINE
--- NOTE | 2020-05-29 21:28 | NUR ---
ORIENTED. TALKATIVE BUT NAKNEK. RETURNED TO BED WITH STANDBY ASSIST. ONLY COMPLAINT IS HUNGER
--- NOTE | 2020-05-29 23:07 | NUR ---
BEDRESTING. EYES CLOSED
[2020-05-30] VITALS (16 sets, daily range): BP systolic 97–139; BP diastolic 45–86
--- NOTE | 2020-05-30 00:28 | NUR ---
URINATING REGULARLY SINCE LASIX TAKEN. TOLERATING WELL
--- NOTE | 2020-05-30 02:00 | NUR ---
BEDRESTING. RESP EVEN AND NONLABORED. NO DSITRESS NOTED
--- NOTE | 2020-05-30 04:00 | NUR ---
RESTLESS. TOOK OFF GOWN. SITTING ON EDGE OF BED. C/O UNABLE TO GET COMFORTABLE AND C/O GENERALIZED PAIN. TYLENOL AND A SLEEPING PILL GIVEN HE HAS NOT RESTED MUCH TONIGHT
--- NOTE | 2020-05-30 05:00 | NUR ---
CALLING OUT "HELP ME... HELP ME" C/O BACK ACHING. 2 PERSON STANDBY ASSIST TO RECLINER. PT STATES HE LIVES IN A RECLINER AND THAT WILL HELP HIS BACK MORE THAN ANYTHING. FEET ELEVATED. SITTING IN RECLINER. RESP EVEN AND NONLABORED
--- NOTE | 2020-05-30 05:30 | NUR ---
LAB HERE FOR BLOOD DRAW
[2020-05-30 05:57] LABS: HEMATOCRIT 35.9 % (39.0-50.0); HEMOGLOBIN 11.2 g/dl (14.0-18.0); MEAN CELL VOLUME 98.9 fL CALC (80.0-100.0); MEAN CORPUSCULAR HGB 30.9 pG CALC (26.0-32.0); MEAN CORPUSCULAR HGB CONC 31.2 g/dL CAL (32.0-36.0); NEUT# 4.69 thou/uL (1.82-7.42); RED BLOOD COUNT 3.63 mill/uL (4.70-6.10); RED CELL DISTRI WIDTH 15.5 % (11.5-15.5)
[2020-05-30 06:19] LABS: ALBUMIN 3.9 g/dL (3.2-5.0); BILIRUBIN, TOTAL 0.5 mg/dL (0.0-1.4); CHOLESTEROL HDL RATIO 3.8 (<4.4 (CALC)); CREATININE 1.4 mg/dL (0.7-1.3); MAGNESIUM 2.1 mg/dL (1.6-2.3); POTASSIUM 4.2 mmol/l (3.5-5.1)
--- NOTE | 2020-05-30 06:22 | NUR ---
SITTING IN RECLINER DOZING. READILY AWAKENS. SMILING AND TALKATIVE
[2020-05-30 06:25] LABS: IMMATURE GRANULOCYTES 7.3 % (0.0-5.0)
--- NOTE | 2020-05-30 06:45 | NUR ---
RECIEVED REPORT FROM FLORESITA STAUFFER. ASSUMED PT CARE.
--- NOTE | 2020-05-30 07:30 | NUR ---
PT SITTING IN RECLINER, PACED,TRIGEMENY,PVC'S ON TELEMETRY, HR 78. PT DENIES CP, OR DISTRESS AT THIS TIME. PT REMAINS SOB WITH EXERTION, LS CLEAR/DIMINISHED, SA02@98% ON 4LPM/NC. LAC TO LSCALP CDI. ABDOMEN DISTENDED, NON-TENDER, BSX4 ACTIVE, LBM 10-26-20. BLE WITH +3 PITTING EDEMA FEET TO KNEE. PT STATED "OH THATS GOOD IT GETS FOR ME". CALL LIGHT IN REACH. WILL MONITOR.
--- NOTE | 2020-05-30 07:49 | NUR ---
Patient is screened for PT intervention. He is still being worked both for cardiac and pulmonary problems and it is probably too early for intervention at this time. He would benefit when he is a little more stable
--- NOTE | 2020-05-30 08:30 | NUR ---
CONSULTATION CALLED TO DR. SIMPSON, SPOKE WITH Leoncio IN JOHANN OFFICE. ECHO SCHEDULED FOR TODAY. PT UPDATED.
--- NOTE | 2020-05-30 09:04 | NUR ---
ASSISTED PT WITH PERSONAL CELL PHONE, TALKING WITH . CALL LIGHT IN REACH. WILL MONITOR.
--- NOTE | 2020-05-30 10:00 | NUR ---
PT FOUND WITH B/P CUFF AND TELEMETRY LEADS IN HAND. PT EDUCATED ON MONITORING EQUIPMENT. MONITORING EQUIPMENT REAPPLIED. PT REMAINS SITTING UP IN RECLINER. CALL LIGHT IN REACH, URINAL AT BEDSIDE. WILL MONITOR.
--- NOTE | 2020-05-30 10:55 | NUR ---
LIZA LÓPEZ AT BEDSIDE FOR ASSESSMENT AND TO DISCUSS PLAN OF CARE. NO NEW ORDERS AT THIS TIME.
--- NOTE | 2020-05-30 11:30 | NUR ---
LUNCH TRAY SET UP
--- NOTE | 2020-05-30 12:17 | NUR ---
PT REMAINS IN RECLINER, BLE UP. NO DISTRESS NOTED . CALL LIGHT IN REACH.
--- NOTE | 2020-05-30 12:30 | NUR ---
DELIVERED PT H/A. GIVEN TO PT AND ASSISTED WITH APPLICATION.
--- NOTE | 2020-05-30 13:57 | NUR ---
ASSISTED PT TO BSC, LARGE FORMED BM. THEN BACK TO RECLINER. CALL LIGHT IN REACH. WILL MONITOR.
--- NOTE | 2020-05-30 15:30 | NUR ---
PT ASSISTED BACK TO BED FOR PENDING US/ECHO. PT TOLERATED WELL.
--- NOTE | 2020-05-30 15:56 | NUR ---
US AT BEDSIDE FOR ECHO.
--- NOTE | 2020-05-30 17:13 | NUR ---
PT ASSISTED BACK TO RECLINER PER [place]. CALL LIGHT IN REACH. WILL MONITOR.
--- NOTE | 2020-05-30 18:15 | NUR ---
PT RESTING IN BED, NO DISTRESS NOTED AT THIS TIME. PT REMAINS IN RECLINER. CALL LIGHT IN REACH. WILL MONITOR.
--- NOTE | 2020-05-30 19:21 | NUR ---
RECEIVED PT SITTING UP IN CHAIR. PT REFUSED LASIX MEDICATION. PT BECAME VERY AGITATED, YELLING AT RN TO GET THE HELL OUT. OFFERED REASSURANCE AND TRIED TO CALM PT. PT REMAINS AGITATED.
--- NOTE | 2020-05-30 19:30 | NUR ---
PT REMOVED IV SITE FROM L ARM. BLEEDING CONTROLLED. PT REFUSED NEW IV AT THIS TIME. PLACED MONITOR LEADS, B/P CUFF, SA02 PROBE BACK ON PT.
--- NOTE | 2020-05-30 20:30 | NUR ---
PT APOLOGIZED FOR EARLIER BEHAVIOR. AAOX3, AGREES TO TAKE PM MEDS.
--- NOTE | 2020-05-30 22:00 | NUR ---
PT REMAINS IN CHAIR, OFFERED TO ASSIST PT BACK TO BED, REFUSED AT THIS TIME. PT RELATED HE SLEEPS IN A CHAIR AT HOME. NO NEEDS AT THIS TIME. CALL ARLEY IN REACH.
[2020-05-31] VITALS: BP 94/69
--- NOTE | 2020-05-31 | NUR ---
PT REMAINS IN CHAIR. NEW IV IL STARTED TO L WRIST. NO DISTRESS NOTED. CALL TUBBS IN REACH.
--- NOTE | 2020-05-31 00:45 | NUR ---
PT ASSISTED TO BED. CALL TUBBS IN REACH.
[2020-05-31 02:00] VITALS: BP 112/45
--- NOTE | 2020-05-31 02:00 | NUR ---
ASSISTED PT UP TO CHAIR. NO NEEDS AT THIS TIME. CALL TUBBS IN REACH.
[2020-05-31 04:00] VITALS: BP 103/53
--- NOTE | 2020-05-31 04:00 | NUR ---
PT REMAINS IN CHAIR, DOES NOT WANT TO GO BACK IN BED. PT SLIGHTLY CONFUSED AT THIS TIME. OFFERED REORIENTATION. REVIEWED CALL ARLEY.
--- NOTE | 2020-05-31 04:40 | NUR ---
LAB AT BEDSIDE.
[2020-05-31 05:06] LABS: HEMATOCRIT 33.7 % (39.0-50.0); HEMOGLOBIN 10.4 g/dl (14.0-18.0); MEAN CELL VOLUME 99.4 fL CALC (80.0-100.0); MEAN CORPUSCULAR HGB 30.7 pG CALC (26.0-32.0); MEAN CORPUSCULAR HGB CONC 30.9 g/dL CAL (32.0-36.0); NEUT# 4.99 thou/uL (1.82-7.42); RED BLOOD COUNT 3.39 mill/uL (4.70-6.10); RED CELL DISTRI WIDTH 15.9 % (11.5-15.5)
[2020-05-31 05:25] LABS: ANION GAP 8 (6-22 (CALC)); BUN 38 mg/dL (8-23); BUN/CREATININE RATIO 38 (12-20 (CALC)); CARBON DIOXIDE 33 mmol/l (22-30); CHLORIDE 103 mmol/l (95-108); GFR > 60 ML/MIN (>=60 (CALC)); GFR FOR AFR.AMER. > 60 ML/MIN (>=60 (CALC)); MAGNESIUM 2.2 mg/dL (1.6-2.3); POTASSIUM 3.9 mmol/l (3.5-5.1); SODIUM 141 mmol/l (137-146)
[2020-05-31 05:47] LABS: IMMATURE GRANULOCYTES 6.3 % (0.0-5.0)
[2020-05-31 06:00] VITALS: BP 111/45
--- NOTE | 2020-05-31 06:00 | NUR ---
PT REMAINS IN CHAIR, NO DISTRESS NOTED. CALL TUBBS IN REACH.
--- NOTE | 2020-05-31 06:45 | NUR ---
REPORT TO ADAM CANAS.
--- NOTE | 2020-05-31 07:00 | NUR ---
REPORT RECEIVED FROM TONO CANAS , PT SITTING UP IN CHAIR, STATES ALWAYS SITS UP IN CHAIR, NEVER LAYS DOWN IN BED, PT DENIES ANY DISCOMFORT EXCEPT FOR CHRONIC SHOULDER PAIN. PT ALERT/ORIENTED X3.
--- NOTE | 2020-05-31 09:00 | NUR ---
PT HERE FOR CONSULT, PT UP WALKING IN ROOM , UNSTEADY GAIT. PT STATES HE WILL GO TO REHAB TO HELP HIM BUILD HIS STRENGTH
--- NOTE | 2020-05-31 09:23 | NUR ---
PT RESTING QUIETLY IN CHAIR, ON PHONE TALKING WITH , STATING SHE CAN COME INTO VISIT AT THIS TIME,
--- NOTE | 2020-05-31 10:10 | NUR ---
PT CONSENTED TO PNEUMOCOCCAL VAX BUT RECEIVED PREVNAR AND PNEUMOVAX SINCE TURNING 67. NO FURTHER PNEUMOCOCCAL VAX INDICATED
--- NOTE | 2020-05-31 10:46 | NUR ---
PT UP TO BSC WITH MODERATE AMOUNT OF BM, PT BACK TO CHAIR WITH MINIMAL EFFORT.
--- NOTE | 2020-05-31 11:44 | NUR ---
AT BEDSIDE, PT ALERT/ORIENTED X3, LAUGHING AND TALKING . VITAL SIGNS STABLE
[2020-05-31 14:20] VITALS: BP 107/50
--- NOTE | 2020-05-31 15:36 | NUR ---
PT RESTING QUIETLY, SITTING UP IN CHAIR, ANTIBIOTICS INFUSING
--- NOTE | 2020-05-31 17:14 | NUR ---
PT TALKING ON PHONE, ALERT/ORIENTED X3, REMAINS SITTING UP IN CHAIR,
--- NOTE | 2020-05-31 19:25 | NUR ---
UP IN RECLINER WITH LEGS ELEVATED. RESP NON-LABORED. AT REST. O2 ON AT 4 L NC. BREATH SOUNDS CLEAR, DIMINISHED THROUGHOUT. 3+ PITTING EDEMA OF BLE. SALINE LOCK INTACT IN RW, SITE BENIGN. SHOE STICKS REPAIRER SHOWS PACED RHTHYM ALT WITH SR WITH 1 ST DEGREE AVB AND FREQ PVC'S. DISCUSSED PLAN OF CARE. AUGUSTINE REY AT THIS TIME. CALL TUBBS IN REACH.
[2020-05-31 22:00] VITALS: BP 122/51
--- NOTE | 2020-05-31 22:00 | NUR ---
REMAINS UP IN RECLINER. PATIENT STATES HE SLEEPS IN RECLINER AT HOME. NO COMPLAINTS VOICED. VSS.
[2020-06-01] VITALS (7 sets, daily range): BP systolic 96–129; BP diastolic 41–55
--- NOTE | 2020-06-01 00:10 | NUR ---
CONTINUES TO SIT UP IN RECLINER WITH LEGS ELEVATED. MEDICATED WITH TYLENOL 650 MG PO FOR C/O HEADACHE AND SONANTA 5 MG PO FOR SLEEP. COOL CLOTH TO FOREHEAD. VSS.
--- NOTE | 2020-06-01 02:15 | NUR ---
PATIENT AMBULATED TO BR ON HIS OWN. ASSISTED BACK FROM BR TO CHAIR. PATIENT IS UNSTEADY ON HIS FEET. REMINDED NOT TO GET UP WITOUT HELP. CALL TUBBS IN REACH.
--- NOTE | 2020-06-01 03:58 | NUR ---
DOZES ON AND OFF. VSS. RESP NON-LABORED AT REST. O2 ON AT 4 L NC.
[2020-06-01 05:38] LABS: HEMATOCRIT 35.6 % (39.0-50.0); HEMOGLOBIN 10.9 g/dl (14.0-18.0); MEAN CELL VOLUME 99.2 fL CALC (80.0-100.0); MEAN CORPUSCULAR HGB 30.4 pG CALC (26.0-32.0); MEAN CORPUSCULAR HGB CONC 30.6 g/dL CAL (32.0-36.0); NEUT# 4.18 thou/uL (1.82-7.42); RED BLOOD COUNT 3.59 mill/uL (4.70-6.10)
[2020-06-01 05:54] LABS: ANION GAP 9 (6-22 (CALC)); BUN 38 mg/dL (8-23); BUN/CREATININE RATIO 43 (12-20 (CALC)); CARBON DIOXIDE 34 mmol/l (22-30); CHLORIDE 101 mmol/l (95-108); CREATININE 0.9 mg/dL (0.7-1.3); GFR > 60 ML/MIN (>=60 (CALC)); GFR FOR AFR.AMER. > 60 ML/MIN (>=60 (CALC)); MAGNESIUM 2.2 mg/dL (1.6-2.3); POTASSIUM 3.9 mmol/l (3.5-5.1); SODIUM 140 mmol/l (137-146)
--- NOTE | 2020-06-01 06:00 | NUR ---
HAS REMAINED UP IN THE CHAIR TONIGHT. PATIENT IS LOUD AND GRUFF-OCC YELLS OUT. VSS. SALINE LOCK INTACT IN LAC, SITE HEALTHY.
--- NOTE | 2020-06-01 07:47 | NUR ---
PT SITTING UP IN CHAIR, BROUGHT HIM A CUP OF COFFEE PER REQUEST, PT ALERT/ORIENTED, WATCHING TV, VITAL SIGNS STABLE, STILL HAVING RUNS OF BIGEMENY AND TRIGEMENY, WITH SMALL RUNS OF POSSIBLE VTACH.
--- NOTE | 2020-06-01 08:00 | NUR ---
DR. ROD IN TO SEE PT; PLAN OF CARE DISCUSSED.
[2020-06-01] MEDS ORDERED: FUROSEMIDE20 MG PO (08:49)
--- NOTE | 2020-06-01 10:00 | NUR ---
PLAN OF CARE DISCUSSED WITH PT; TRANSFER TO [facility] PENDING; PT AGEEBALE; CALL TUBBS WITHIN REACH; WILL CONTINUE TO MONITOR.
--- NOTE | 2020-06-01 12:17 | NUR ---
PT ASSISTED WITH LUNCH SET UP; NO COMPLAINTS VOICED; CALL TUBBS WITHIN REACH; WILL CONTINUE TO MONITOR.
--- NOTE | 2020-06-01 14:09 | NUR ---
Discharge instructions given. Patient verbalizes understanding of same. Discharged in stable condition via [facility] with *Other. All belongings sent with pt. PT TO [facility] VIA STRETCHER ACCOMPANIED BY [facility] STAFF; ALL BELONGINGS INCLUDING MEDICATIONS SENT WITH PT; SPOUSE NOTIFIED.
--- NOTE | 2020-06-01 14:17 | NUR ---
REPORT CALLED TO [facility].
== END 2020-06-01 14:09 | DRG 291 ==
LOC: ED 13:32 → ED-I 15:08 → ED 15:26 → MS2 15:27 → ICU 15:27
PROVIDERS: Family Medicine; Internal Medicine; Nurse Practitioner; ADMIT Internal Medicine; ATTEND Internal Medicine
PROC: 0HQ0XZZ Repair Scalp Skin, External Approach (ICD-10-PCS; principal; 2020-05-29)
DX: I50.23 Acute on chronic systolic (congestive) heart failure (principal); J96.21 Acute and chronic respiratory failure with hypoxia; I47.2 Ventricular tachycardia; J44.9 Chronic obstructive pulmonary disease, unspecified; I49.3 Ventricular premature depolarization; I48.0 Paroxysmal atrial fibrillation; S01.01XA Laceration without foreign body of scalp, initial encounter; W19.XXXA Unspecified fall, initial encounter; G47.33 Obstructive sleep apnea (adult) (pediatric); K21.9 Gastro-esophageal reflux disease without esophagitis; N40.0 Benign prostatic hyperplasia without lower urinary tract symptoms; G50.0 Trigeminal neuralgia; I25.10 Atherosclerotic heart disease of native coronary artery without angina pectoris; I27.20 Pulmonary hypertension, unspecified; Z86.79 Personal history of other diseases of the circulatory system; Z87.891 Personal history of nicotine dependence; Z79.01 Long term (current) use of anticoagulants; Z95.3 Presence of xenogenic heart valve; Z99.81 Dependence on supplemental oxygen; Z88.8 Allergy status to other drugs, medicaments and biological substances; Z91.81 History of falling; Z95.810 Presence of automatic (implantable) cardiac defibrillator; Z86.74 Personal history of sudden cardiac arrest; Z20.828 Contact with and (suspected) exposure to other viral communicable diseases
CPT/HCPCS: J1650